=== PATIENT | female | born 1960 | race African-American/Black ===

== ENCOUNTER 2019-10-28 19:54 | Inpatient (IN) | payer OTHER ==
[~2019-10-28] VITALS: Ht 162.6 cm; Wt 97.5 kg
[~2019-10-28 19:54] MED LIST: NEURONTIN300 MG ORAL
[2019-10-28 20:10] VITALS: BP 131/74
[2019-10-28] MEDS ORDERED: VITAMIN D3-ALO1 EACH PO (20:11)
[2019-10-28] MEDS ORDERED: ASPIR 8181 MG ORAL (20:11)
[2019-10-28] MEDS ORDERED: LIPITOR80 MG ORAL (20:11)
[2019-10-28] MEDS ORDERED: TRIAMTERENE-HC1 EAC7 ORAL (20:11)
[2019-10-28] MEDS ORDERED: MULTIVITAMINS1 EAC2 ORAL (20:11)
[2019-10-28] MEDS ORDERED: LEVOTHYROXINE125 MCG ORAL (20:11)
--- NOTE | 2019-10-28 20:43 | Emergency Room Report ---
History of Present Illness General Chief Complaint: Chest Pain Source: Patient Present Illness HPI Patient presents with complaints of chest pain Patient reports that she was sitting watching TV about an hour and a half prior to arrival started feeling heaviness in the left midsternal part of her heart and presents to the ER for further evaluation Denies any pleurisy denies any vomiting or diarrhea denies any change with position or exertion and the pain did come on during rest patient reports that she had a stress test done many years ago However has not had any other work-up since then patient has history of hypertension and hypercholesterolemia Allergies: Coded Allergies: ACETAMINOPHEN (Verified Allergy, Unknown, 10/28/19) IODINE (Verified Allergy, Unknown, 11/18/08) OXYCODONE (Verified Allergy, Unknown, 11/18/08) COVID-19 Screening Contact w/high risk pt: No Recent Travel to affected area: No Experienced COVID-19 symptoms?: No Patient History Past Medical History: see triage record Reviewed Nursing Documentation: PMH: Agreed; PSxH: Agreed Nursing Documentation-PMH Hx Cardiac Problems: Yes - high cholesterol Hx Hypertension: Yes - borderline Review of Systems All Other Systems: negative except mentioned in HPI Physical Exam Vital Signs Date Time Temp Pulse Resp B/P (MAP) Pulse Ox O2 Delivery O2 Flow Rate FiO2 10/28/19 20:00 97.9 85 16 137/79 (98) 98 Room Air Sp02 EP Interpretation: reviewed, normal General Appearance: well appearing, no apparent distress Head: normocephalic, atraumatic Eyes: bilateral eye PERRL, bilateral eye EOMI ENT: hearing grossly normal, normal pharynx, TMs + canals normal, uvula midline Neck: full range of motion, supple, no meningismus, no bony tend Respiratory: lungs clear, normal breath sounds, no rhonchi, no respiratory distress, no retraction, no accessory muscle use Cardiovascular #1: normal peripheral pulses, regular rate, rhythm, no edema, no gallop, no JVD, no murmur Gastrointestinal: normal bowel sounds, non tender, soft, no mass, no organomegaly, non-distended, no guarding, no hernia, no pulsatile mass, no rebound Genitourinary: no CVA tenderness Musculoskeletal: back normal Neurologic: motor strength/tone normal, baler operator III-XII nml as tested, oriented x3 , sensory intact, responsive Psychiatric: mood/affect normal Skin: no rash Lymphatic: normal inspection, no adenopathy Medical Decision Making Diagnostic Impression: Primary Impression: ACS (acute coronary syndrome) ER Course Patient is a fairly complex patient with multiple differential to consideration including but not limited to cardiac cardiopulmonary and vascular emergencies Have significant comorbidities given the description of the discomfort and the patient's presentation she is recommended for further inpatient care Initial troponin negative Other blood work at baseline levels Patient continued with admission Labs Test 10/28/19 20:30 White Blood Count 7.2 K/UL (4.8-10.8) Red Blood Count 4.41 M/UL (4.20-5.40) Hemoglobin 12.8 G/DL (12.0-16.0) Hematocrit 41.0 % (37.0-47.0) Mean Corpuscular Volume 93 FL (80-99) Mean Corpuscular Hemoglobin 29.0 PG (27.0-31.0) Mean Corpuscular Hemoglobin Concent 31.2 G/DL (32.0-36.0) Red Cell Distribution Width 13.4 % (11.6-14.8) Platelet Count 228 K/UL (150-450) Mean Platelet Volume 9.4 FL (6.5-10.1) Neutrophils (%) (Auto) 58.3 % (45.0-75.0) Lymphocytes (%) (Auto) 32.6 % (20.0-45.0) Monocytes (%) (Auto) 4.5 % (1.0-10.0) Eosinophils (%) (Auto) 2.9 % (0.0-3.0) Basophils (%) (Auto) 1.7 % (0.0-2.0) Sodium Level 147 MMOL/L (136-145) Potassium Level 3.6 MMOL/L (3.5-5.1) Chloride Level 107 MMOL/L (98-107) Carbon Dioxide Level 28 MMOL/L (21-32) Anion Gap 12 mmol/L (5-15) Blood Urea Nitrogen 14 mg/dL (7-18) Creatinine 1.0 MG/DL (0.55-1.30) Estimat Glomerular Filtration Rate > 60 mL/min (>60) Glucose Level 94 MG/DL (74-106) Calcium Level 9.2 MG/DL (8.5-10.1) Total Bilirubin 0.4 MG/DL (0.2-1.0) Aspartate Amino Transf (AST/SGOT) 19 U/L (15-37) Alanine Aminotransferase (ALT/SGPT) 24 U/L (12-78) Alkaline Phosphatase 97 U/L (46-116) Total Creatine Kinase 108 U/L (26-308) Troponin I 0.000 ng/mL (0.000-0.056) Pro-B-Type Natriuretic Peptide 20 pg/mL (0-125) Total Protein 7.6 G/DL (6.4-8.2) Albumin 4.0 G/DL (3.4-5.0) Globulin 3.6 g/dL Albumin/Globulin Ratio 1.1 (1.0-2.7) Lipase 152 U/L (73-393) EKG Diagnostic Results Rate: normal Rhythm: NSR ST Segments: other - Nonspecific ST changes Rhythm Strip Diag. Results EP Interpretation: yes Rate: 77 Rhythm: NSR, no PVC's, no ectopy Chest X-Ray Diagnostic Results Chest X-Ray Diagnostic Results : Chest X-Ray Ordered: Yes # of Views/Limited/Complete: 1 View Indication: Chest Pain EP Interpretation: Yes Interpretation: no consolidation, other - Cardiomegaly, questionable congestion mild increased markings in the right lower lobe consideration for body habitus versus acute finding, Impression: Other - Cardiomegaly with questionable congestion some increased markings right lower lobe Electronically Signed by: DO Jeffrey Blank Vital Signs Date Time Temp Pulse Resp B/P (MAP) Pulse Ox O2 Delivery O2 Flow Rate FiO2 10/28/19 20:10 97.9 85 16 131/74 98 Room Air Status: improved Disposition: ADMITTED INPATIENT Condition: Serious Danial Vivar DO Oct 28, 2019 20:43
[2019-10-28] MEDS ORDERED: Aspirin Baby 81mg ORAL ONE (20:45)
[2019-10-28] MEDS ORDERED: Nitroglycerin 2% oint pkt TOPIC ONE (20:45)
--- NOTE | 2019-10-28 20:56 | Diagnostic Imaging Report ---
History: CP Exam: XR CXR 1 VIEW Comparison: 11/14/2010 FINDINGS: Large appearing body habitus. The lungs appear clear on single portable view. The cardiac silhouette is large for technique. Rightward scoliosis again seen. IMPRESSION: Large appearing body habitus. The lungs appear clear on single portable view. The cardiac silhouette is large for technique. Rightward scoliosis again seen.
[2019-10-28 21:10] LABS: ANION GAP 12 mmol/L (5-15); BLOOD UREA NITROGEN 14 mg/dL (7-18); CALCIUM 9.2 MG/DL (8.5-10.1); CARBON DIOXIDE 28 MMOL/L (21-32); CHLORIDE 107 MMOL/L (98-107); POTASSIUM 3.6 MMOL/L (3.5-5.1); SODIUM 147 MMOL/L (136-145)
[2019-10-28 21:20] LABS: ALANINE AMINOTRANSFERASE 24 U/L (12-78); ALBUMIN/GLOBULIN RATIO 1.1 (1.0-2.7); ALKALINE PHOSPHATASE 97 U/L (46-116); ASPARTATE AMINO TRANSFERASE 19 U/L (15-37); BILIRUBIN,TOTAL 0.4 MG/DL (0.2-1.0); CREATINE KINASE 108 U/L (26-308)
[2019-10-28 21:21] LABS: BASOPHILS % (AUTO) 1.7 % (0.0-2.0); EOSINOPHILS % (AUTO) 2.9 % (0.0-3.0); HEMOGLOBIN 12.8 G/DL (12.0-16.0); LYMPHOCYTES % (AUTO) 32.6 % (20.0-45.0); MEAN CORPUSCULAR VOLUME 93 FL (80-99); MONOCYTES % (AUTO) 4.5 % (1.0-10.0); NEUTROPHILS % (AUTO) 58.3 % (45.0-75.0); PLATELET COUNT 228 K/UL (150-450); RED BLOOD COUNT 4.41 M/UL (4.20-5.40); RED CELL DISTRIBUTION WIDTH 13.4 % (11.6-14.8); WHITE BLOOD COUNT 7.2 K/UL (4.8-10.8)
[2019-10-28 22:10] VITALS: BP 124/65
--- NOTE | 2019-10-28 22:33 | History and Physical ---
History of Present Illness General Date patient seen: Oct 28, 2019 Reason for Hospitalization: Chest Pain Present Illness HPI Ms. Rutherford is a very pleasant 59 YO female with essential hypertension, hyperlipidemia, hypothyroidism, and obesity presenting with chest pain. Patient reports that at approximately 6:30 P.M, while sitting behind her desk at home, she experienced a sudden onset of sharp, substernal, 8/10, non- radiating chest pain which has remained constant. Patient adds that her pain is not related to food intake or exertion. She denies any trauma, pushing/pulling/ lifting heavy objects. She reports compliance with al her home medications. She denies any SOB, diaphoresis, nausea or vomiting. Denies any syncope or near syncope. No reports of fever, chills, cough, abdominal pain, recent travel or sick contacts. In the ED, vitals were within the normal range. Labs including CBC, CMP, troponin x 1 within the normal limit. The CXR did not suggest any acute cardiopulmonary process. A 12-lead EKG showed no acute ischemic abnormalities. Patient is being placed in the observation unit for further medical management. Allergies: Coded Allergies: ACETAMINOPHEN (Verified Allergy, Unknown, 10/28/19) IODINE (Verified Allergy, Unknown, 11/18/08) OXYCODONE (Verified Allergy, Unknown, 11/18/08) COVID-19 Screening Contact w/high risk pt: No Recent Travel to affected area: No Experienced COVID-19 symptoms?: No Medication History Scheduled Aspirin* (Aspir 81*), 81 MG ORAL DAILY, (Reported) Atorvastatin (Lipitor), 40 MG ORAL BEDTIME, (Reported) Gabapentin (Neurontin), 300 MG ORAL THREE TIMES A DAY Levothyroxine Sodium* (Levothyroxine Sodium*), 150 MCG ORAL DAILY, (Reported) Multivitamins* (Multivitamins*), 1 TAB ORAL DAILY, (Reported) Triamterene/Hydrochlorothiazid (Triamterene-Hctz 37.5-25 Mg Cp), 1 CAP ORAL DAILY, (Reported) Miscellaneous Medications Ca Cmb 1/Vit D3/B-6/Fa/B12/Av (Vitamin D3-Aloe 1,000 Unit Tab), 1 EACH PO, ( Reported) Patient History History Provided By: Patient Healthcare decision maker Resuscitation status Advanced Directive on File Past Medical/Surgical History Past Medical/Surgical History: (1) Obesity (2) Hypothyroidism (3) Hyperlipidemia (4) Hypertension Review of Systems Constitutional: Reports: no symptoms Eye: Reports: no symptoms ENT: Reports: no symptoms Respiratory: Reports: no symptoms Cardiovascular: Reports: other - substernal CP; constant; non-radiating. Gastrointestinal: Reports: no symptoms Genitourinary: Reports: no symptoms Musculoskeletal: Reports: no symptoms Skin: Reports: no symptoms Psychiatric: Reports: no symptoms Neurological: Reports: no symptoms Endocrine: Reports: no symptoms Hematologic/Lymphatic: Reports: no symptoms Physical Exam General Appearance: no apparent distress, alert, obese Lines, tubes and drains: peripheral HEENT: normocephalic, atraumatic Neck: supple Respiratory/Chest: chest wall non-tender, lungs clear, normal breath sounds, no respiratory distress, no accessory muscle use Cardiovascular/Chest: normal peripheral pulses Abdomen: normal bowel sounds, non tender, soft Extremities: normal range of motion, pitting - 2+ pitting edema in the b/l LEs Skin Exam: normal pigmentation Neurologic: wind science and planning II-XII grossly normal, alert, oriented x 3 Musculoskeletal: normal muscle bulk Last 24 Hour Vital Signs Date Time Temp Pulse Resp B/P (MAP) Pulse Ox O2 Delivery O2 Flow Rate FiO2 10/28/19 20:48 131/65 10/28/19 20:10 97.9 85 16 131/74 98 Room Air 10/28/19 20:10 85 16 Room Air 10/28/19 20:00 97.9 85 16 137/79 (98) 98 Room Air Laboratory Tests Test 10/28/19 20:30 White Blood Count 7.2 K/UL (4.8-10.8) Red Blood Count 4.41 M/UL (4.20-5.40) Hemoglobin 12.8 G/DL (12.0-16.0) Hematocrit 41.0 % (37.0-47.0) Mean Corpuscular Volume 93 FL (80-99) Mean Corpuscular Hemoglobin 29.0 PG (27.0-31.0) Mean Corpuscular Hemoglobin Concent 31.2 G/DL (32.0-36.0) L Red Cell Distribution Width 13.4 % (11.6-14.8) Platelet Count 228 K/UL (150-450) Mean Platelet Volume 9.4 FL (6.5-10.1) Neutrophils (%) (Auto) 58.3 % (45.0-75.0) Lymphocytes (%) (Auto) 32.6 % (20.0-45.0) Monocytes (%) (Auto) 4.5 % (1.0-10.0) Eosinophils (%) (Auto) 2.9 % (0.0-3.0) Basophils (%) (Auto) 1.7 % (0.0-2.0) Sodium Level 147 MMOL/L (136-145) H Potassium Level 3.6 MMOL/L (3.5-5.1) Chloride Level 107 MMOL/L (98-107) Carbon Dioxide Level 28 MMOL/L (21-32) Anion Gap 12 mmol/L (5-15) Blood Urea Nitrogen 14 mg/dL (7-18) Creatinine 1.0 MG/DL (0.55-1.30) Estimat Glomerular Filtration Rate > 60 mL/min (>60) Glucose Level 94 MG/DL (74-106) Calcium Level 9.2 MG/DL (8.5-10.1) Total Bilirubin 0.4 MG/DL (0.2-1.0) Aspartate Amino Transf (AST/SGOT) 19 U/L (15-37) Alanine Aminotransferase (ALT/SGPT) 24 U/L (12-78) Alkaline Phosphatase 97 U/L (46-116) Total Creatine Kinase 108 U/L (26-308) Troponin I 0.000 ng/mL (0.000-0.056) Pro-B-Type Natriuretic Peptide 20 pg/mL (0-125) Total Protein 7.6 G/DL (6.4-8.2) Albumin 4.0 G/DL (3.4-5.0) Globulin 3.6 g/dL Albumin/Globulin Ratio 1.1 (1.0-2.7) Lipase 152 U/L (73-393) Height (Feet): 5 Weight (Pounds): 218 Assessment/Plan Assessment/Plan: 59 YO F with HTN, HLD, Hypothyroidism, and obesity presenting with acute onset of substernal chest pain. Initial medical work up unrevealing in the Emergency Department. Given cardiovascular risk factors ,patient placed in the observation unit for additional medical management and ischemic cardiac studies to rule out ACS. #Atypical Chest Pain: -Etiologies include ACS vs. M.S vs. Gastrointestinal; PE unlikely given no signs of low O2% or tachycardia. -EKG not suggestive of any acute ST-segment or T-wave abnormalities. -Troponin x 1 negative. Continue to trend. -CXR negative. -Admit to observation unit. -Continuous cardiac monitoring. -Resume home ASA 81 MG QD. -Resume home Atorvastatin 40QD. -Nitro-bid PRN -2-D echocardiogram ordered to rule out any valvular/wall motion abnormalities. -Lexiscan nuclear stress test ordered. -Cardiology team to be consulted in the A.M. Appreciate further recommendations. #Essential Hypertension: -Resume home Triamterene-HCTZ #HLD: -Resume home Lipitor 40 QD. #Hypothyroidism: -Resume home Levothyroxine 150 mcg QD. F:None E:Monitor and replete PRN N:Cardiac diet-No caffeine I spent 70 minutes on this patient's case, and >50% was dedicated to counseling and/or care coordination. I spent an additional 35 minutes on review of medical records including prior records, consult notes, progress notes, procedures, imaging, labs, hemodynamics , and other clinical documentation. Nilesh Griffith M.D. Oct 28, 2019 22:33
[2019-10-29] MEDS ORDERED: Nitroglycerin 2% oint pkt TOPIC PRN ×2 (01:15→03:00)
[2019-10-29 02:16] LABS: CHOLESTEROL 161 MG/DL (< 200); HDL CHOLESTEROL 51 MG/DL (40-60); TRIGLYCERIDES 35 MG/DL (30-150)
[2019-10-29 07:52] VITALS: BP 104/61
[2019-10-29] MEDS: Triamterene/Hctz 37.5/25 cap ORAL SCH (08:22)
[2019-10-29] MEDS: Aspirin EC 81mg tab ORAL SCH (08:25)
[2019-10-29] MEDS: Heparin 5000 units/ml inj SUBQ SCH ×2 (08:27→21:14)
[2019-10-29] MEDS ORDERED: Triamterene/Hctz 37.5/25 cap ORAL SCH (09:00)
[2019-10-29] MEDS ORDERED: Heparin 5000 units/ml inj SUBQ SCH (09:00)
[2019-10-29] MEDS ORDERED: Aspirin EC 81mg tab ORAL SCH (09:00)
[2019-10-29] MEDS ORDERED: Lexiscan 0.4mg/5ml syringe IV PRN ×2 (10:00)
[2019-10-29 12:00] VITALS: BP 124/74
[2019-10-29 16:00] VITALS: BP 121/65
--- NOTE | 2019-10-29 16:13 | General Progress Note ---
Assessment/Plan Assessment/Plan: 59 YO F with HTN, HLD, Hypothyroidism, and obesity presenting with acute onset of substernal chest pain. Initial medical work up unrevealing in the Emergency Department. Given cardiovascular risk factors ,patient placed in the observation unit for additional medical management and ischemic cardiac studies to rule out ACS. #Angina, POA -ACS ruled out with serial trop and EKG -CXR negative. -Continuous cardiac monitoring. -Cont ASA 81 MG QD. -Cont Atorvastatin 40QD. -Cont NTG -2-D echocardiogram ordered to rule out any valvular/wall motion abnormalities. -Lexiscan nuclear stress test ordered. -Cardiology consulted #Essential Hypertension: -Cont home Triamterene-HCTZ #HLD: -Resume home Lipitor 40 QD. #Hypothyroidism: -Resume home Levothyroxine 150 mcg QD. F:None E:Monitor and replete PRN N:Cardiac diet-No caffeine I spent 35 minutes on this patient's case, and 20 was dedicated to counseling and/or care coordination. I spent an additional 35 minutes on review of medical records including prior records, consult notes, progress notes, procedures, imaging, labs, hemodynamics , and other clinical documentation. Subjective Date patient seen: Oct 29, 2019 Time patient seen: 16:10 ROS Limited/Unobtainable: No Constitutional: Denies: chills, fever Cardiovascular: Denies: chest pain, palpitations Respiratory: Denies: cough, orthopnea, shortness of breath Gastrointestinal/Abdominal: Denies: abdomen distended, abdominal pain Neurologic/Psychiatric: Reports: headache Allergies: Coded Allergies: ACETAMINOPHEN (Verified Allergy, Unknown, 10/28/19) IODINE (Verified Allergy, Unknown, 11/18/08) OXYCODONE (Verified Allergy, Unknown, 11/18/08) Subjective Follow up for angina. Chest pain is controlled with NTG, although she has developed headache Awaiting Card eval and stress testing. Objective Last 24 Hour Vital Signs Date Time Temp Pulse Resp B/P (MAP) Pulse Ox O2 Delivery O2 Flow Rate FiO2 10/29/19 12:00 98.2 80 20 124/74 (91) 97 10/29/19 09:00 Room Air 10/29/19 07:52 97.2 72 18 104/61 (75) 98 10/29/19 02:12 Room Air 10/29/19 00:00 75 10/28/19 23:30 98.1 78 16 118/66 100 Room Air 10/28/19 22:10 97.9 80 16 124/65 100 Room Air 10/28/19 20:48 131/65 10/28/19 20:10 97.9 85 16 131/74 98 Room Air 10/28/19 20:10 85 16 Room Air 10/28/19 20:00 97.9 85 16 137/79 (98) 98 Room Air Laboratory Tests 10/28/19 20:30: White Blood Count 7.2, Red Blood Count 4.41, Hemoglobin 12.8, Hematocrit 41.0, Mean Corpuscular Volume 93, Mean Corpuscular Hemoglobin 29.0, Mean Corpuscular Hemoglobin Concent 31.2L, Red Cell Distribution Width 13.4, Platelet Count 228, Mean Platelet Volume 9.4, Neutrophils (%) (Auto) 58.3, Lymphocytes (%) (Auto) 32.6, Monocytes (%) (Auto) 4.5, Eosinophils (%) (Auto) 2.9, Basophils (%) (Auto ) 1.7, Sodium Level 147H, Potassium Level 3.6, Chloride Level 107, Carbon Dioxide Level 28, Anion Gap 12, Blood Urea Nitrogen 14, Creatinine 1.0, Estimat Glomerular Filtration Rate > 60, Glucose Level 94, Calcium Level 9.2, Total Bilirubin 0.4, Aspartate Amino Transf (AST/SGOT) 19, Alanine Aminotransferase ( ALT/SGPT) 24, Alkaline Phosphatase 97, Total Creatine Kinase 108, Troponin I 0.000, Pro-B-Type Natriuretic Peptide 20, Total Protein 7.6, Albumin 4.0, Globulin 3.6, Albumin/Globulin Ratio 1.1, Lipase 152 10/29/19 01:55: Troponin I 0.000, Triglycerides Level 35, Cholesterol Level 161, LDL Cholesterol 101H, HDL Cholesterol 51, Cholesterol/HDL Ratio 3.2L 10/29/19 07:50: Troponin I 0.000 Height (Feet): 5 Weight (Pounds): 216 General Appearance: alert Neck: normal alignment, supple Cardiovascular: normal rate, regular rhythm Respiratory/Chest: lungs clear, normal breath sounds Abdomen: non tender, soft Carlos Amador MD Oct 29, 2019 16:13
[2019-10-29 20:00] VITALS: BP 117/75
[2019-10-29] MEDS ORDERED: Atorvastatin 20mg tab ORAL SCH (21:00)
[2019-10-29] MEDS: Atorvastatin 20mg tab ORAL SCH (21:13)
[2019-10-30] VITALS: BP 124/72
[2019-10-30 04:00] VITALS: BP 107/67
[2019-10-30 08:00] VITALS: BP 117/56
[2019-10-30] MEDS: Heparin 5000 units/ml inj SUBQ SCH ×2 (09:07→20:49)
[2019-10-30] MEDS: Triamterene/Hctz 37.5/25 cap ORAL SCH (09:08)
[2019-10-30] MEDS: Aspirin EC 81mg tab ORAL SCH (09:08)
--- NOTE | 2019-10-30 11:59 | General Progress Note ---
Assessment/Plan Problem List: (1) GERD (gastroesophageal reflux disease) ICD Codes: K21.9 - Gastro-esophageal reflux disease without esophagitis SNOMED: 862189404 (2) Obesity ICD Codes: E66.9 - Obesity, unspecified SNOMED: 633312979, 321038615 (3) Hypertension ICD Codes: I10 - Essential (primary) hypertension SNOMED: 74665019 (4) Hypothyroidism ICD Codes: E03.9 - Hypothyroidism, unspecified SNOMED: 76646712 (5) ACS (acute coronary syndrome) ICD Codes: I24.9 - Acute ischemic heart disease, unspecified SNOMED: 460415212 (6) Hyperlipidemia ICD Codes: E78.5 - Hyperlipidemia, unspecified SNOMED: 55764062 Assessment/Plan: ppi pending cardiac test tomorrow EGD if needed Subjective ROS Limited/Unobtainable: Yes Allergies: Coded Allergies: ACETAMINOPHEN (Verified Allergy, Unknown, 10/28/19) IODINE (Verified Allergy, Unknown, 11/18/08) OXYCODONE (Verified Allergy, Unknown, 11/18/08) Objective Last 24 Hour Vital Signs Date Time Temp Pulse Resp B/P (MAP) Pulse Ox O2 Delivery O2 Flow Rate FiO2 10/30/19 08:44 80 10/30/19 08:00 98.2 81 20 117/56 (76) 95 10/30/19 04:00 67 10/30/19 04:00 97.6 63 19 107/67 (80) 96 10/30/19 00:00 80 10/30/19 00:00 98.3 82 19 124/72 (89) 100 10/29/19 21:00 Room Air 10/29/19 20:00 98.0 84 18 117/75 (89) 100 10/29/19 20:00 90 10/29/19 16:00 72 10/29/19 16:00 98.3 85 18 121/65 (83) 98 10/29/19 12:00 71 10/29/19 12:00 98.2 80 20 124/74 (91) 97 Intake and Output 10/29/19 10/30/19 19:00 07:00 Intake Total 120 ml Balance 120 ml Intake Oral 120 ml # Voids 4 3 # Bowel Movements 1 1 Height (Feet): 5 Weight (Pounds): 216 General Appearance: alert EENT: normal ENT inspection Neck: supple Cardiovascular: normal rate Respiratory/Chest: decreased breath sounds Abdomen: normal bowel sounds, non tender, soft Extremities: non-tender Jason Smith MD Oct 30, 2019 11:59
[2019-10-30 12:00] VITALS: BP 114/74
--- NOTE | 2019-10-30 13:48 | General Progress Note ---
Assessment/Plan Assessment/Plan: 59 YO F with HTN, HLD, Hypothyroidism, and obesity presenting with acute onset of substernal chest pain. Initial medical work up unrevealing in the Emergency Department. Given cardiovascular risk factors ,patient placed in the observation unit for additional medical management and ischemic cardiac studies to rule out ACS. #Angina, POA -ACS ruled out with serial trop and EKG -CXR negative. -Continuous cardiac monitoring. -Cont ASA 81 MG QD. -Cont Atorvastatin 40QD. -Cont NTG -2-D echocardiogram ordered to rule out any valvular/wall motion abnormalities. -Lexiscan nuclear stress test ordered for Thursday, NPO after midnight -Cardiology #Odynophagia, dysphagia -GI consulted, Dr. Smith #Essential Hypertension: -Cont home Triamterene-HCTZ #HLD: -Resume home Lipitor 40 QD. #Hypothyroidism: -Resume home Levothyroxine 150 mcg QD. F:None E:Monitor and replete PRN N:Cardiac diet-No caffeine I spent 35 minutes on this patient's case, and 20 was dedicated to counseling and/or care coordination. Subjective Date patient seen: Oct 30, 2019 Time patient seen: 13:00 ROS Limited/Unobtainable: No Constitutional: Denies: chills, fever Cardiovascular: Denies: chest pain Respiratory: Denies: cough Gastrointestinal/Abdominal: Denies: abdominal pain Allergies: Coded Allergies: ACETAMINOPHEN (Verified Allergy, Unknown, 10/28/19) IODINE (Verified Allergy, Unknown, 11/18/08) OXYCODONE (Verified Allergy, Unknown, 11/18/08) Subjective Follow up for angina. Chest pain is controlled with NTG Awaiting stress testing tomorrow Also reports odynophagia and dysphagia Objective Last 24 Hour Vital Signs Date Time Temp Pulse Resp B/P (MAP) Pulse Ox O2 Delivery O2 Flow Rate FiO2 10/30/19 08:44 80 10/30/19 08:00 98.2 81 20 117/56 (76) 95 10/30/19 04:00 67 10/30/19 04:00 97.6 63 19 107/67 (80) 96 10/30/19 00:00 80 10/30/19 00:00 98.3 82 19 124/72 (89) 100 10/29/19 21:00 Room Air 10/29/19 20:00 98.0 84 18 117/75 (89) 100 10/29/19 20:00 90 10/29/19 16:00 72 10/29/19 16:00 98.3 85 18 121/65 (83) 98 Intake and Output 10/29/19 10/30/19 19:00 07:00 Intake Total 120 ml Balance 120 ml Intake Oral 120 ml # Voids 4 3 # Bowel Movements 1 1 Height (Feet): 5 Weight (Pounds): 216 General Appearance: alert Neck: normal alignment, supple Cardiovascular: normal rate, regular rhythm Respiratory/Chest: lungs clear, normal breath sounds Abdomen: non tender, soft, no organomegaly Carlos Amador MD Oct 30, 2019 13:48
[2019-10-30 16:00] VITALS: BP 102/62
[2019-10-30 20:00] VITALS: BP 117/68
[2019-10-30] MEDS: Atorvastatin 20mg tab ORAL SCH (20:49)
--- NOTE | 2019-10-30 22:23 | Consultation ---
History of Present Illness General Date patient seen: Oct 30, 2019 Time patient seen: 19:58 Chief Complaint: Chest Pain Present Illness HPI Ms. Rutherford is a very pleasant 59 YO female with essential hypertension, hyperlipidemia, hypothyroidism, and obesity presenting with chest pain. Patient reports that at approximately 6:30 P.M, while sitting behind her desk at home, she experienced a sudden onset of sharp, substernal, 8/10, non- radiating chest pain which has remained constant. Patient adds that her pain is not related to food intake or exertion. She denies any trauma, pushing/pulling/ lifting heavy objects. She reports compliance with al her home medications. She denies any SOB, diaphoresis, nausea or vomiting. Denies any syncope or near syncope. No reports of fever, chills, cough, abdominal pain, recent travel or sick contacts. In the ED, vitals were within the normal range. Labs including CBC, CMP, troponin x 1 within the normal limit. The CXR did not suggest any acute cardiopulmonary process. A 12-lead EKG showed no acute ischemic abnormalities. Allergies: Coded Allergies: ACETAMINOPHEN (Verified Allergy, Unknown, 10/28/19) IODINE (Verified Allergy, Unknown, 11/18/08) OXYCODONE (Verified Allergy, Unknown, 11/18/08) Medication History Scheduled Aspirin* (Aspir 81*), 81 MG ORAL DAILY, (Reported) Atorvastatin (Lipitor), 40 MG ORAL BEDTIME, (Reported) Gabapentin (Neurontin), 300 MG ORAL THREE TIMES A DAY Levothyroxine Sodium* (Levothyroxine Sodium*), 150 MCG ORAL DAILY, (Reported) Multivitamins* (Multivitamins*), 1 TAB ORAL DAILY, (Reported) Triamterene/Hydrochlorothiazid (Triamterene-Hctz 37.5-25 Mg Cp), 1 CAP ORAL DAILY, (Reported) Miscellaneous Medications Ca Cmb 1/Vit D3/B-6/Fa/B12/Av (Vitamin D3-Aloe 1,000 Unit Tab), 1 EACH PO, ( Reported) Patient History Healthcare decision maker Resuscitation status Full Code Advanced Directive on File Review of Systems Constitutional: Reports: no symptoms Eye: Reports: no symptoms ENT: Reports: no symptoms Respiratory: Reports: no symptoms Cardiovascular: Reports: chest pain Gastrointestinal: Reports: no symptoms Genitourinary: Reports: no symptoms Musculoskeletal: Reports: no symptoms Skin: Reports: no symptoms Psychiatric: Reports: no symptoms Neurological: Reports: no symptoms Endocrine: Reports: no symptoms Hematologic/Lymphatic: Reports: no symptoms Physical Exam General Appearance: no apparent distress, alert Lines, tubes and drains: peripheral HEENT: normocephalic, anicteric, mucous membranes moist, PERRL Neck: non-tender, normal alignment, supple, normal inspection Respiratory/Chest: chest wall non-tender, lungs clear, normal breath sounds, no respiratory distress, no accessory muscle use Cardiovascular/Chest: normal peripheral pulses, normal rate, regular rhythm Abdomen: normal bowel sounds, non tender, soft, no organomegaly, no mass Extremities: normal range of motion, non-tender, normal inspection, no calf tenderness, normal capillary refill, non-pitting Skin Exam: normal pigmentation, warm/dry, cyanotic Neurologic: 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-XII 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 normal, no motor/sensory deficits Last 24 Hour Vital Signs Date Time Temp Pulse Resp B/P (MAP) Pulse Ox O2 Delivery O2 Flow Rate FiO2 10/30/19 16:00 97.6 72 19 102/62 (75) 98 10/30/19 16:00 70 10/30/19 12:00 97.5 66 20 114/74 (87) 98 10/30/19 12:00 63 10/30/19 09:00 Room Air 10/30/19 08:44 80 10/30/19 08:00 98.2 81 20 117/56 (76) 95 10/30/19 04:00 67 10/30/19 04:00 97.6 63 19 107/67 (80) 96 10/30/19 00:00 80 10/30/19 00:00 98.3 82 19 124/72 (89) 100 Intake and Output 10/29/19 10/30/19 19:00 07:00 Intake Total 120 ml Balance 120 ml Intake Oral 120 ml # Voids 4 3 # Bowel Movements 1 1 Height (Feet): 5 Weight (Pounds): 216 Medications Current Medications Medications (Trade) Dose Ordered Sig/Krystal Route PRN Reason Start Time Stop Time Status Last Admin Dose Admin Aspirin (Ecotrin) 81 mg DAILY ORAL 10/29/19 09:00 12/13/19 08:59 10/30/19 09:08 Atorvastatin Calcium (Lipitor) 40 mg BEDTIME ORAL 10/29/19 21:00 01/27/20 20:59 10/30/19 20:49 Gabapentin (Neurontin) 300 mg THREE TIMES A DAY ORAL 10/29/19 09:00 11/28/19 08:59 10/30/19 18:38 Heparin Sodium (Porcine) (Heparin 5000 units/ml) 5,000 units EVERY 12 HOURS SUBQ 10/29/19 09:00 12/13/19 08:59 10/30/19 09:07 Levothyroxine Sodium (Synthroid) 150 mcg DAILY@0630 ORAL 10/29/19 06:30 11/28/19 06:29 10/30/19 06:34 Multivitamins (Multivitamins) 1 tab DAILY ORAL 10/29/19 09:00 11/28/19 08:59 10/30/19 09:08 Nitroglycerin (Nitro-Bid) 1 inch NEEDED PRN TOPIC Prn Chest Pain 10/29/19 03:00 11/28/19 01:14 Pantoprazole (Protonix) 40 mg DAILY ORAL 10/31/19 09:00 11/30/19 08:59 Regadenoson (Lexiscan) 0.4 mg PRN PRN IV Stress test 10/29/19 10:00 10/31/19 09:59 Triamterene/HCTZ (Dyazide) 1 cap DAILY ORAL 10/29/19 09:00 11/28/19 08:59 10/30/19 09:08 Assessment/Plan Status: stable Assessment/Plan: ASSESSMENT: Atypical chest pain HTN HLD Obesity Hypothyroidism PLAN: Serial EKG/Troponin Nitro prn chest pain Aspirin Continue atorvastatin Hold heparin gtt, no ACS Stress test in AM Outpatient coronary calcium score DASH/Cardiac diet Cardiac rehab outpatient Follow up echocardiogram Continue blood pressure medications Dmitry Mcqueen MD Oct 30, 2019 22:23
[2019-10-31] VITALS: BP 105/65
[2019-10-31 04:00] VITALS: BP 106/62
[2019-10-31 08:00] VITALS: BP 134/72
--- NOTE | 2019-10-31 08:30 | General Progress Note ---
Assessment/Plan Problem List: (1) GERD (gastroesophageal reflux disease) ICD Codes: K21.9 - Gastro-esophageal reflux disease without esophagitis SNOMED: 108461727 (2) Obesity ICD Codes: E66.9 - Obesity, unspecified SNOMED: 990569110, 091061205 (3) Hypertension ICD Codes: I10 - Essential (primary) hypertension SNOMED: 78964225 (4) Hypothyroidism ICD Codes: E03.9 - Hypothyroidism, unspecified SNOMED: 58864977 (5) ACS (acute coronary syndrome) ICD Codes: I24.9 - Acute ischemic heart disease, unspecified SNOMED: 078799659 (6) Hyperlipidemia ICD Codes: E78.5 - Hyperlipidemia, unspecified SNOMED: 49316795 Status: stable Assessment/Plan: ppi pending cardiac test for today EGD if needed and if stress test neg Subjective ROS Limited/Unobtainable: Yes Allergies: Coded Allergies: ACETAMINOPHEN (Verified Allergy, Unknown, 10/28/19) IODINE (Verified Allergy, Unknown, 11/18/08) OXYCODONE (Verified Allergy, Unknown, 11/18/08) Objective Last 24 Hour Vital Signs Date Time Temp Pulse Resp B/P (MAP) Pulse Ox O2 Delivery O2 Flow Rate FiO2 10/31/19 08:15 81 10/31/19 04:00 97.1 63 17 106/62 (77) 98 10/31/19 04:00 60 10/31/19 00:00 71 10/31/19 00:00 97.3 70 18 105/65 (78) 98 10/30/19 21:00 Room Air 10/30/19 20:00 75 10/30/19 20:00 97.5 71 18 117/68 (84) 97 10/30/19 16:00 97.6 72 19 102/62 (75) 98 10/30/19 16:00 70 10/30/19 12:00 97.5 66 20 114/74 (87) 98 10/30/19 12:00 63 10/30/19 09:00 Room Air 10/30/19 08:44 80 Intake and Output 10/30/19 10/31/19 19:00 07:00 Intake Total 600 ml Balance 600 ml Intake Oral 600 ml # Voids 2 1 # Bowel Movements 1 1 Height (Feet): 5 Weight (Pounds): 216 General Appearance: alert EENT: normal ENT inspection Neck: supple Cardiovascular: normal rate Respiratory/Chest: decreased breath sounds Abdomen: normal bowel sounds, non tender, soft Extremities: non-tender Jason Smith MD Oct 31, 2019 08:30
[2019-10-31] MEDS: Triamterene/Hctz 37.5/25 cap ORAL SCH (10:53)
[2019-10-31] MEDS: Aspirin EC 81mg tab ORAL SCH (10:55)
[2019-10-31] MEDS: Heparin 5000 units/ml inj SUBQ SCH ×2 (10:56→20:57)
[2019-10-31 12:37] VITALS: BP 123/69
--- NOTE | 2019-10-31 13:32 | General Progress Note ---
Assessment/Plan Status: stable Assessment/Plan: 59 YO F with HTN, HLD, Hypothyroidism, and obesity presenting with acute onset of substernal chest pain. Initial medical work up unrevealing in the Emergency Department. Given cardiovascular risk factors ,patient placed in the observation unit for additional medical management and ischemic cardiac studies to rule out ACS. #Angina, POA -ACS ruled out with serial trop and EKG -CXR negative. -Continuous cardiac monitoring. -Cont ASA 81 MG QD. -Cont Atorvastatin 40QD. -Cont NTG -2-D echocardiogram ordered to rule out any valvular/wall motion abnormalities. -Lexiscan nuclear stress test today, pending results -Cardiology following, recs appreciated #Odynophagia, dysphagia -GI consulted, Dr. Smith, possible EGD if stress test negative #Essential Hypertension: -Cont home Triamterene-HCTZ #HLD: -Resume home Lipitor 40 QD. #Hypothyroidism: -Resume home Levothyroxine 150 mcg QD. F:None E:Monitor and replete PRN N:Cardiac diet-No caffeine I spent 35 minutes on this patient's case, and 20 was dedicated to counseling and/or care coordination, d/w Dr. Smith and RN. Additional 30 mins was spent on chart review, H&P, progress notes, labs, and imaging. Subjective Allergies: Coded Allergies: ACETAMINOPHEN (Verified Allergy, Unknown, 10/28/19) IODINE (Verified Allergy, Unknown, 11/18/08) OXYCODONE (Verified Allergy, Unknown, 11/18/08) Subjective F/u for CP/dyspepsia Pt states she is feeling better today, no SOB, diaphoresis. For stress test today. Objective Last 24 Hour Vital Signs Date Time Temp Pulse Resp B/P (MAP) Pulse Ox O2 Delivery O2 Flow Rate FiO2 10/31/19 12:38 69 10/31/19 12:37 97.7 69 19 123/69 (87) 98 10/31/19 09:00 Room Air 10/31/19 08:15 81 10/31/19 08:00 97.7 76 19 134/72 (92) 99 10/31/19 04:00 97.1 63 17 106/62 (77) 98 10/31/19 04:00 60 10/31/19 00:00 71 10/31/19 00:00 97.3 70 18 105/65 (78) 98 10/30/19 21:00 Room Air 10/30/19 20:00 75 10/30/19 20:00 97.5 71 18 117/68 (84) 97 10/30/19 16:00 97.6 72 19 102/62 (75) 98 10/30/19 16:00 70 Intake and Output 10/30/19 10/31/19 19:00 07:00 Intake Total 600 ml Balance 600 ml Intake Oral 600 ml # Voids 2 1 # Bowel Movements 1 1 Height (Feet): 5 Weight (Pounds): 216 Objective General: NAD, A&O x 3, laying in bed comfortably HEENT: NCAT, EOMi, MMM CV: RRR, no murmurs, rubs, or gallops Pulm: CTAB, No wheezes, rhonchi, or rales, no accessory muscle usage or conversational dyspnea GI: Soft, nontender, nondistended, bowel sounds present Ext: No lower extremity edema bilaterally Skin: no rashes lesions or ulcers Msk: No reproducible tenderness upon anterior chest wall palpation Neuro: CN 2-12 grossly intact bilaterally, no focal signs. Riky Castellanos M.D. Oct 31, 2019 13:32
[2019-10-31 16:19] VITALS: BP 115/67
--- NOTE | 2019-10-31 16:34 | Diagnostic Imaging Report ---
Indications: Chest pain Technique: Single day single isotope protocol utilized. Initially, resting images obtained using IV administration 10.9 millicuries 99M technetium Myoview. Subsequently, patient underwent lexiscan stress testing. See cardiology report for details. During adenosine infusion, IV administration 29.5 mCi 99 M technetium Myoview. SPECT and planar images obtained. SPECT images gated to 8 phases of the cardiac cycle were also obtained, and reformatted into cine images for evaluation of ejection fraction. Comparison: none Findings: Presence or absence of symptoms during infusion is not described on the cardiology report. Per cardiology report, resting EKG demonstrates normal sinus rhythm. Presence or absence of ST changes during infusion is not described on the cardiology report. Decreased perfusion in the inferior wall which appears to reperfuse on the resting images.. Calculated post stress ejection fraction 68%. No focal wall motion abnormality Impression: Nonischemic clinical response to pharmacologic stress, per cardiology report Nonischemic electrocardiographic response to pharmacologic stress, per cardiology report Apparent reversible inferior wall perfusion defect. While possibly a diaphragmatic attenuation artifact, finding is concerning for inferior wall ischemia Calculated post stress ejection fraction 68%
[2019-10-31 20:00] VITALS: BP 105/45
[2019-10-31] MEDS: Atorvastatin 20mg tab ORAL SCH (20:56)
--- NOTE | 2019-10-31 21:40 | Cardiology Progress Note ---
Assessment/Plan Status: stable Assessment/Plan ASSESSMENT: Atypical chest pain HTN HLD Obesity Hypothyroidism PLAN: ASSESSMENT: Atypical chest pain HTN HLD Obesity Hypothyroidism PLAN: Stress test with mild inferior ischemia - recommend medication management and will arrange outpatient cardiac cath at [facility] to d/c Thursday Final recommendations: -aspirin daily -High dose statin -Repatha as outpatient --Nitro SL prn -Imdur 30 mg daily -Ranexa 500 mg BID -Cardiac rehab -Consider EECP to improve angina -Maintain DASH/Cardiac diet -Continue blood pressure medication/control dw patient Subjective Cardiovascular: Reports: no symptoms Respiratory: Reports: no symptoms Gastrointestinal/Abdominal: Reports: no symptoms Genitourinary: Reports: no symptoms Subjective No acute events, patient for stress test today, no complaints Objective Last 24 Hour Vital Signs Date Time Temp Pulse Resp B/P (MAP) Pulse Ox O2 Delivery O2 Flow Rate FiO2 10/31/19 16:20 77 10/31/19 16:19 97.2 77 18 115/67 (83) 98 10/31/19 12:38 69 10/31/19 12:37 97.7 69 19 123/69 (87) 98 10/31/19 09:00 Room Air 10/31/19 08:15 81 10/31/19 08:00 97.7 76 19 134/72 (92) 99 10/31/19 04:00 97.1 63 17 106/62 (77) 98 10/31/19 04:00 60 10/31/19 00:00 71 10/31/19 00:00 97.3 70 18 105/65 (78) 98 General Appearance: no apparent distress, alert EENT: TMs normal, pharynx normal Neck: non-tender, normal alignment, supple, normal inspection, no JVD Rhythm: NSR Cardiovascular: normal peripheral pulses, normal rate, regular rhythm Respiratory/Chest: chest wall non-tender, lungs clear, normal breath sounds, no respiratory distress, no accessory muscle use Abdomen: normal bowel sounds, non tender, soft, no organomegaly, no mass Extremities: normal range of motion, non-tender, normal inspection, no calf tenderness, no swelling 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
[2019-11-01] VITALS: BP 101/53
[2019-11-01 04:00] VITALS: BP 109/64
[2019-11-01 06:30] LABS: BASOPHILS % (AUTO) 1.4 % (0.0-2.0); EOSINOPHILS % (AUTO) 4.6 % (0.0-3.0); HEMATOCRIT 37.2 % (37.0-47.0); HEMOGLOBIN 12.6 G/DL (12.0-16.0); LYMPHOCYTES % (AUTO) 35.2 % (20.0-45.0); MEAN CORPUSCULAR VOLUME 89 FL (80-99); NEUTROPHILS % (AUTO) 50.9 % (45.0-75.0); PLATELET COUNT 224 K/UL (150-450); RED BLOOD COUNT 4.18 M/UL (4.20-5.40); RED CELL DISTRIBUTION WIDTH 11.9 % (11.6-14.8); WHITE BLOOD COUNT 6.5 K/UL (4.8-10.8)
[2019-11-01 07:25] LABS: ALANINE AMINOTRANSFERASE 22 U/L (12-78); ALBUMIN 3.3 G/DL (3.4-5.0); ALKALINE PHOSPHATASE 89 U/L (46-116); ANION GAP 8 mmol/L (5-15); ASPARTATE AMINO TRANSFERASE 22 U/L (15-37); BILIRUBIN,TOTAL 0.5 MG/DL (0.2-1.0); BLOOD UREA NITROGEN 11 mg/dL (7-18); CALCIUM 9.2 MG/DL (8.5-10.1); CARBON DIOXIDE 31 MMOL/L (21-32); CHLORIDE 104 MMOL/L (98-107); POTASSIUM 3.8 MMOL/L (3.5-5.1); SODIUM 143 MMOL/L (136-145)
[2019-11-01 08:00] VITALS: BP 117/57
[2019-11-01] MEDS: Heparin 5000 units/ml inj SUBQ SCH (10:15)
[2019-11-01] MEDS: Triamterene/Hctz 37.5/25 cap ORAL SCH (10:15)
[2019-11-01] MEDS ORDERED: NITRO-BID1 GM TOPIC (10:17)
[2019-11-01] MEDS ORDERED: RANEXA500 MG ORAL (10:18)
[2019-11-01] MEDS: Aspirin EC 81mg tab ORAL SCH (10:20)
[2019-11-01] MEDS ORDERED: ISOSORBIDE MONO30 M1 PO (10:20)
--- NOTE | 2019-11-01 10:24 | Discharge Summary ---
Discharge Summary Hospital Course Date of Admission Oct 28, 2019 at 21:59 Date of Discharge Admitting Diagnosis ACUTE CORONARY SYNDROME HPI Marie Rutherford is a 59 year old female who was admitted on Oct 28, 2019 at 21:59 for Acute Coronary Syndrome Hospital Course 59 YO F with HTN, HLD, Hypothyroidism, and obesity presenting with acute onset of substernal chest pain. ACS was ruled out, trops negative, EKG and CXR unremarkable. Pt noted she has dysphagia, GI consulted and stated will plan for o/p EGD. Cardiology, Dr. Mcqueen was consulted and pt underwent stress test with mild inferior ischemia. D/w Dr. Mcqueen who recommended medication management with outpatient cardiac cath at [facility]. Patient to be DC home with ASA, statin, nitro sublingual, Imdur, Ranexa. Patient to follow-up with PCP and natural resource manager as o/p to schedule cardiac cath. Pt expressed understanding and stated she will follow up. Dr. Mcqueen's office number was given to pt. #Angina, POA #Odynophagia, dysphagia #Essential Hypertension: #HLD: #Hypothyroidism: D/c planning >30 mins. Discharge Medications New Medications: Isosorbide Mononitrate (Isosorbide Mononitrate Er) 30 Mg Tab.er.24h 30 MG PO laurence for 30 Days, #30 TAB 3 Refills Ranolazine* (Ranexa*) 500 Mg Tab.er.12h 500 MG ORAL EVERY 12 HOURS for 30 Days, #60 TAB 0 Refills Gabapentin (Neurontin) 300 Mg Capsule 300 MG ORAL THREE TIMES A DAY for 30 Days, #90 CAP 3 Refills Nitroglycerin (Nitro-Bid*) 1 Gm Oint...g. 1 INCH TOPIC NEEDED PRN for 14 Days, #1 GM 2 Refills Continued Medications: Aspirin* (Aspir 81*) 81 Mg Tablet. 81 MG ORAL DAILY for htn, TAB (This prescription has been renewed) Atorvastatin (Lipitor) 80 Mg Tablet 40 MG ORAL BEDTIME for heart, #30 TAB 0 Refills (This prescription has been renewed) Ca Cmb 1/Vit D3/B-6/Fa/B12/Av (Vitamin D3-Aloe 1,000 Unit Tab) 1 Each Tablet 1 EACH PO for supplement, TAB (This prescription has been renewed) Levothyroxine Sodium* (Levothyroxine Sodium*) 125 Mcg Tablet 150 MCG ORAL DAILY for hypothyroid, TAB (This prescription has been renewed) Take in the morning on an empty stomach, at least 30 minutes before food. Multivitamins* (Multivitamins*) 1 Each Tablet 1 TAB ORAL DAILY for supplement, TAB 0 Refills (This prescription has been renewed) Triamterene/Hydrochlorothiazid (Triamterene-Hctz 37.5-25 Mg Cp) 1 Each Capsule 1 CAP ORAL DAILY for htn, CAP (This prescription has been renewed) Discontinued Medications: Gabapentin (Neurontin) 300 Mg Cap 300 MG ORAL THREE TIMES A DAY, #21 CAP 0 Refills Discharge Discharge Vital Signs Last Vital Signs Date Time Temp Pulse Resp B/P (MAP) Pulse Ox O2 Delivery O2 Flow Rate FiO2 11/01/19 08:45 Room Air 11/01/19 08:00 98.7 73 18 117/57 (18) 98 Discharge Disposition Patient was discharged to Riky Castellanos M.D. Nov 01, 2019 10:24
--- NOTE | 2019-11-01 10:54 | General Progress Note ---
Assessment/Plan Problem List: (1) GERD (gastroesophageal reflux disease) ICD Codes: K21.9 - Gastro-esophageal reflux disease without esophagitis SNOMED: 686148963 (2) Obesity ICD Codes: E66.9 - Obesity, unspecified SNOMED: 907343457, 911427373 (3) Hypertension ICD Codes: I10 - Essential (primary) hypertension SNOMED: 88388510 (4) Hypothyroidism ICD Codes: E03.9 - Hypothyroidism, unspecified SNOMED: 29606731 (5) ACS (acute coronary syndrome) ICD Codes: I24.9 - Acute ischemic heart disease, unspecified SNOMED: 262013394 (6) Hyperlipidemia ICD Codes: E78.5 - Hyperlipidemia, unspecified SNOMED: 93141605 Status: stable Assessment/Plan: ppi cardiolgy in put appreciated needs out patient cardiac cath will cancel EGD for now fu as out patient Subjective ROS Limited/Unobtainable: Yes Allergies: Coded Allergies: ACETAMINOPHEN (Verified Allergy, Unknown, 10/28/19) IODINE (Verified Allergy, Unknown, 11/18/08) OXYCODONE (Verified Allergy, Unknown, 11/18/08) Objective Last 24 Hour Vital Signs Date Time Temp Pulse Resp B/P (MAP) Pulse Ox O2 Delivery O2 Flow Rate FiO2 11/01/19 08:45 Room Air 11/01/19 08:00 98.7 73 18 117/57 (77) 98 11/01/19 04:43 64 11/01/19 04:00 97.5 81 18 109/64 (79) 97 11/01/19 00:00 73 11/01/19 00:00 98.0 75 18 101/53 (69) 98 10/31/19 21:00 Room Air 10/31/19 20:00 97.7 77 18 105/45 (65) 100 10/31/19 20:00 87 10/31/19 16:20 77 10/31/19 16:19 97.2 77 18 115/67 (83) 98 10/31/19 12:38 69 10/31/19 12:37 97.7 69 19 123/69 (87) 98 Intake and Output 10/31/19 11/01/19 19:00 07:00 Intake Total 360 ml Output Total 500 ml Balance -140 ml Intake Oral 360 ml Output Urine Total 500 ml # Voids 3 2 # Bowel Movements 1 Laboratory Tests 11/01/19 06:05: White Blood Count 6.5, Red Blood Count 4.18L, Hemoglobin 12.6, Hematocrit 37.2, Mean Corpuscular Volume 89, Mean Corpuscular Hemoglobin 30.2, Mean Corpuscular Hemoglobin Concent 33.9, Red Cell Distribution Width 11.9, Platelet Count 224, Mean Platelet Volume 7.8, Neutrophils (%) (Auto) 50.9, Lymphocytes (%) (Auto) 35.2, Monocytes (%) (Auto) 8.0, Eosinophils (%) (Auto) 4.6H, Basophils (%) (Auto ) 1.4, Sodium Level 143, Potassium Level 3.8, Chloride Level 104, Carbon Dioxide Level 31, Anion Gap 8, Blood Urea Nitrogen 11, Creatinine 1.0, Estimat Glomerular Filtration Rate > 60, Glucose Level 97, Calcium Level 9.2, Total Bilirubin 0.5, Aspartate Amino Transf (AST/SGOT) 22, Alanine Aminotransferase ( ALT/SGPT) 22, Alkaline Phosphatase 89, Total Protein 6.7, Albumin 3.3L, Globulin 3.4, Albumin/Globulin Ratio 1.0 Height (Feet): 5 Height (Inches): 4.00 Weight (Pounds): 215 General Appearance: no apparent distress EENT: normal ENT inspection Neck: supple Cardiovascular: normal rate Respiratory/Chest: decreased breath sounds Abdomen: normal bowel sounds, non tender, soft Extremities: non-tender Jason Smith MD Nov 01, 2019 10:54
--- NOTE | 2019-11-01 11:37 | Discharge Instructions ---
Discharge Instructions Discharge Instructions Follow up with: PCP, power cutting machine operator Dr. Mcqueen. Special Instructions Call Dr. Mcqueen's office for f/u appointment within 2-3 days to schedule o/p cardiac cath. Office: [phone]. Follow up w/Dr. Smith or GI of your choice as o/p. For Congestive Heart Failure Reminder Report to your physician any weight gain of 5 pounds or more in one week. Riky Castellanos M.D. Nov 01, 2019 11:37
[2019-11-01] MEDS ORDERED: NEURONTIN300 MG ORAL (11:38)
== END 2019-11-01 13:00 | disposition home health service (06) | DRG 311 ==
LOC: EMR 20:15 → EDBEDREQ 21:59 → 2E 21:59 → OBSVTOIN 21:59 → EDBEDREQ 22:16 → OBSVTOIN 10-30 14:40 → INTOOBSV 10-30 14:40 → 2E 10-31 20:14
DX: I20.9 Angina pectoris, unspecified (principal); Z68.41 Body mass index [BMI] 40.0-44.9, adult; E66.9 Obesity, unspecified; I10 Essential (primary) hypertension; K21.9 Gastro-esophageal reflux disease without esophagitis; E78.5 Hyperlipidemia, unspecified; E03.9 Hypothyroidism, unspecified; R13.10 Dysphagia, unspecified; Z79.82 Long term (current) use of aspirin; Z88.6 Allergy status to analgesic agent; Z88.8 Allergy status to other drugs, medicaments and biological substances
CPT/HCPCS: 36415; 71045; 78452; 80053; 80061; 82550; 83690; 83880; 84484; 85025; 93005; 93017; 96374; 99285; J2785